=== PATIENT | female | born 1955 | race Caucasian/White ===

== ENCOUNTER 2024-07-05 07:00 | Day surgery (SDC) | payer OTHER ==
[~2024-07-05] VITALS: Ht 154.9 cm; Wt 61.2 kg
[2024-07-05] MEDS ORDERED: BENZOCAINE 20% 0.5mL UD SPRAY MM ONE (08:17)
[2024-07-05] MEDS ORDERED: MEPERIDINE 100 MG INJ. 100 MG/ML VIAL ONE (08:18)
[2024-07-05] MEDS ORDERED: MIDAZOLAM HCL 5 MG/5 ML VIAL ONE (08:18)
[2024-07-05] MEDS ORDERED: fentaNYL CITRATE/PF 100 MCG/2 ML AMP ONE (08:18)
[2024-07-05 13:11] VITALS: BP_SYST 123; PULSE 90; RESP 18; TEMP 97.7; O2SAT 98
== END 2024-07-05 11:34 | disposition home or self-care (01) ==
LOC: SDS 07:00 → SMU 07:01 → SDS 11:34
PROVIDERS: ATTEND Internal Medicine
DX: R13.10 Dysphagia, unspecified (principal); K29.50 Unspecified chronic gastritis without bleeding; K22.2 Esophageal obstruction; E11.9 Type 2 diabetes mellitus without complications; D50.9 Iron deficiency anemia, unspecified; M19.90 Unspecified osteoarthritis, unspecified site; Z90.49 Acquired absence of other specified parts of digestive tract; Z90.710 Acquired absence of both cervix and uterus
CPT/HCPCS: 43248; 43239; 99152; 82948; 88305; 88312; 88313; G0378; J2250; J2175; C1769; J3010